=== PATIENT | female | born 1990 | race Caucasian/White ===

== ENCOUNTER → 2017-08-03 | Day surgery (SDC) | payer BC ==
[2017-08-02 09:54] VITALS: BP 136/72
[2017-08-02 10:15] LABS: BASOPHIL # 0.1 10^3/uL (0.0-0.1); BASOPHIL % 0.8 % (0.0-0.2); EOSINOPHIL # 0.2 10^3/uL (0.0-0.2); EOSINOPHIL % 2.2 % (0.0-5.0); HEMOGLOBIN 12.2 g/dL (12.0-15.0); LYMPHOCYTES % 25.9 % (24.0-44.0); MEAN CELL HGB 27.3 pg (26-34); MEAN CELL HGB CONCENTRATION 32.4 g/dL (33-37); MEAN CORP VOLUME 84.1 fL (78-100); MEAN PLATELET VOLUME 10.6 fL (7.8-11.0); MONOCYTES # 0.6 10^3/uL (0.3-0.8); NEUTROPHILS % 63.8 % (41.0-85.0); RED CELL DISTRIBUTION WIDTH 13.5 % (11.5-14.5); WHITE BLOOD CELL 7.8 10^3/uL (4.5-11.0)
[2017-08-02 10:47] LABS: CALCIUM 8.6 mg/dL (8.4-10.5); CARBON DIOXIDE 23.5 mmol/L (20.0-32)
--- NOTE | 2017-08-02 14:51 | PCM.EKG ---
[facility] Test Date: 2017-08-02 Test Time: 09:59:32 Pat Name: BANDAR HALL Department: Room: Gender: F Shuttle Repairer: COLIN : 1990 Requested By: MARYANN HALE Order Number: [id number] Reading MD: Measurements Intervals [place] Rate: 64 P: 27 NH: 188 QRS: 86 QRSD: 88 T: 35 QT: 412 QTc: 425 Interpretive Statements Normal sinus rhythm Normal ECG No previous ECG available for comparison Please click the below link to view image of tracing.
[~2017-08-03] VITALS: Ht 165.1 cm; Wt 92.5 kg
[2017-08-03] VITALS (13 sets, daily range): BP systolic 101–132; BP diastolic 55–83
[~2017-08-03] MED LIST: ATOR20TA PO; BENADRYL IV PRN; CETI10TA18 PO; CHOL500016 PO; CYAN10005 PO; DECADRON ONE; DILAUDID IV PRN; DILAUDID ONE; DIPRIVAN IV ONE; LACTATED RINGERS 1,000 ML IV SCH; LOVENOX SQ ONE; MEFOXIN 1 GM in NS 100ML 100 ML IV ONE; MEFOXIN ONE; METO-236 PO; MORPHINE SULFATE IV PRN; NEOSTIGMINE ONE; NORCO 5MG PO PRN; NS 100ML 100 ML IV ONE; OMEP20CA12 PO; PANT40TA5 PO; PHENERGAN IV PRN; SENSORCAINE-MPF 0.5% VIAL ONE; SODIUM CHLORIDE IR ONE; SODIUM CHLORIDE IRR BAG 1,000 ML ONE; SUBLIMAZE IV PRN; SUBLIMAZE ONE; TORADOL ONE; TURM1CAP PO; VERSED ONE; WATER ONE; ZEMURON IV ONE; ZOFRAN IV PRN; ZOFRAN ONE
--- NOTE | 2017-08-03 09:15 | OPH ---
DATE OF SURGERY: 08/03/2017 PREOPERATIVE DIAGNOSES: 1. Gallbladder polyp with associated biliary colic symptoms. 2. She has a history of dyspepsia. POSTOPERATIVE DIAGNOSES: 1. Chronic cholecystitis. 2. Gastritis. SURGEON: Ben Van DO OVERSEAMER: OR staff. ANESTHESIA: General by Vianca Cheney CRNA plus local used on the field. PROCEDURES PERFORMED: 1. Laparoscopic-assisted cholecystectomy. 2. Esophagogastroduodenoscopy with biopsy. SPECIMENS: 1. Gallbladder to path. 2. Gastric mucosa to path. ESTIMATED BLOOD LOSS: 11 mL. COUNTS: At the completion of the case, the counts were correct per OR staff. DESCRIPTION OF PROCEDURE: The patient is a 27-year-old female known from previous evaluation and consultation. Prior to procedure, informed consent was obtained. At the time of procedure, she was taken to the operative suite and placed in supine position. After time-out was completed, general anesthesia obtained, her abdomen was prepped and draped in normal fashion. Local was used to anesthetize the infraumbilical region. Incision created and 5 mm trocar was introduced into the abdomen with Endo camera visualization. Once in the abdomen, pneumoperitoneum was induced to the level of 14 mmHg. With camera visualization, 5 mm trocar was placed laterally in the right upper quadrant, 5 mm trocar was placed in the epigastrium towards the right upper quadrant, 5 mm trocar was placed in the midline towards right upper quadrant. The gallbladder was retracted and supposed, there was noted to be adhesions in the omentum and stomach to the body of the gallbladder taken down using blunt dissection and electrocautery. Once the infundibulum was identified, gentle dissection was made to isolate the cystic duct. Once cystic duct is clearly isolated, it was clipped twice proximally and once distally and divided sharply. Further dissection was made to isolate cystic artery. Once it was clearly identified, it was clipped twice proximally, once distally and divided with electrocautery. The gallbladder was removed from liver bed using electrocautery. Once completely removed, it was placed in EndoCatch bag, removed through the epigastric trocar and passed to backtable. Trocars reinserted, the gallbladder fossa was irrigated with sterile saline, inspected for bleeding. Any bleeding was identified was controlled with electrocautery. With meticulous hemostasis noted, irrigation and suctioned and closure pursued. With camera visualization, all 4 trocar sites were localized. Camera was placed in the superior trocar and three inferior trocars removed with camera visualization. There was noted to be no bleeding. After reduction of pneumoperitoneum, the superior trocar was removed with camera visualization through the trocar tract. All four skin incisions closed with 4-0 Monocryl. The patient was cleaned. Steri-Strips and bandage applied. Drapes removed. The patient remains anesthetized. The esophagogastroduodenoscope was advanced transorally with pneumoinsufflation distally in second portion of duodenum. Once the duodenum was adequately visualized, camera was slowly withdrawn to facilitate visualization of the duodenal bulb and the pylorus. Pylorus shows gastritis and biopsies are obtained. The retroflexed maneuver performed. The cardia and fundus were grossly normal. Camera reduced. Stomach was decompressed. Scope was slowly withdrawn. Distal, mid and proximal esophagus within normal limits. Vocal cords were not visualized as an endotracheal tube is in place. The camera was removed. Procedure was discontinued. The patient tolerated these procedures well. There were no acute complication noted. At this time, she has been delivered to the recovery room by the anesthesia service. Ben Van DO DR: YNES/ivon JOB# [id number]
== END | DRG 445 ==
LOC: SDC 04:19
PROVIDERS: ATTEND Surgery
DX: K81.1 Chronic cholecystitis (principal); K29.70 Gastritis, unspecified, without bleeding; G43.909 Migraine, unspecified, not intractable, without status migrainosus; K21.9 Gastro-esophageal reflux disease without esophagitis; I10 Essential (primary) hypertension; E78.4 Other hyperlipidemia; I47.1 Supraventricular tachycardia; E66.9 Obesity, unspecified; Z68.33 Body mass index [BMI] 33.0-33.9, adult; Z79.899 Other long term (current) drug therapy; Z98.890 Other specified postprocedural states
CPT/HCPCS: 36415; 43239; 47562; 80053; 84703; 85025; 85610; 85730; 93005; J1100; J1170; J1885; J2250; J2405; J3010; J3490 ×3; J7030 ×2; J7050 ×2; J0694; J2710

== ENCOUNTER → 2018-02-11 | Outpatient (CLI) | payer BC ==
[~2018-02-11] MED LIST changes: -BENADRYL IV PRN; -DECADRON ONE; -DILAUDID IV PRN; -DILAUDID ONE; -DIPRIVAN IV ONE; -LACTATED RINGERS 1,000 ML IV SCH; -LOVENOX SQ ONE; -MEFOXIN 1 GM in NS 100ML 100 ML IV ONE; -MEFOXIN ONE; -MORPHINE SULFATE IV PRN; -NEOSTIGMINE ONE; -NORCO 5MG PO PRN; -NS 100ML 100 ML IV ONE; -PHENERGAN IV PRN; -SENSORCAINE-MPF 0.5% VIAL ONE; -SODIUM CHLORIDE IR ONE; -SODIUM CHLORIDE IRR BAG 1,000 ML ONE; -SUBLIMAZE IV PRN; -SUBLIMAZE ONE; -TORADOL ONE; -VERSED ONE; -WATER ONE; -ZEMURON IV ONE; -ZOFRAN IV PRN; -ZOFRAN ONE
--- NOTE | 2018-02-11 09:35 | DIREP ---
PROCEDURE:XRAY KNEE 3 VIEWS-LT COMPARISON:None. INDICATIONS:LEFT KNEE PAIN FINDINGS: BONES:Normal. JOINTS:Normal. SOFT TISSUES:Normal. OTHER:No additional findings. CONCLUSION: 1. Radiographs of the left knee appear normal. Dictated by: Travis Oconnor M.D. on 02/11/2018 at 09:46 AM
== END | disposition home or self-care (01) ==
LOC: RAD 09:04
PROVIDERS: ATTEND Nurse Practitioner Family
DX: M25.562 Pain in left knee (principal); I10 Essential (primary) hypertension; K21.9 Gastro-esophageal reflux disease without esophagitis; E78.4 Other hyperlipidemia
CPT/HCPCS: 73562-LT

== ENCOUNTER → 2018-10-24 | Outpatient (CLI) | payer BC ==
--- NOTE | 2018-10-24 16:45 | DIREP ---
PROCEDURE:XRAY SPINE THORACIC 3 VWS COMPARISON:None. INDICATIONS:THORACALGIA TECHNIQUE:AP & lateral views of the thoracic spine and a swimmer's view of the cervicothoracic junction are provided. FINDINGS: ALIGNMENT:Normal. VERTEBRAE:Normal. DISK SPACES:Normal. OTHER:Normal. CONCLUSION:Negative thoracic spine radiograph. Dictated by: Neeraj Cisneros M.D. on 10/24/2018 at 04:39 PM
== END | disposition home or self-care (01) ==
LOC: RAD 14:26
PROVIDERS: ATTEND Nurse Practitioner
DX: M54.6 Pain in thoracic spine (principal)
CPT/HCPCS: 72072

== ENCOUNTER 2020-07-07 06:47 | Emergency (ER) | payer BC ==
[~2020-07-07] VITALS: Ht 165.1 cm; Wt 95.3 kg
[~2020-07-07 06:47] MED LIST changes: +CYAN-26 PO; -CYAN10005 PO; -OMEP20CA12 PO; +OMEP20CA19 PO; -PANT40TA5 PO; +PANT40TA6 PO
[2020-07-07 06:49] VITALS: BP 127/82
--- NOTE | 2020-07-07 07:06 | ER.PDOC ---
General Chief Complaint: Palpitations Stated Complaint: RAPID HEART RATE,SOB Time seen by MD: 07:06 Source: patient Exam Limitations: no limitations History of Present Illness Initial Comments Patient presents for evaluation of palpitations and Shortness of breath. She reports that she has been on Metoprolol 25mg XR for several years. Over the past week she has had runny nose, rapid heart rate and shortness of breath where she feels that she cant catch her breath. She has not missed any doses.No increase in caffeine, no perceived anxiety. SHe did have a fever of 100 this morning. Denies cough, headache, body aches, urinary complaints, vomiting, diarrhea or change in taste or smell. She does endorse nausea. Her fit bit has been between 109-117 so she came in for evaluation. No known sick contacts. No pain or swelling in extremities. No family hx of DVT/PE Allergies: Coded Allergies: Penicillins (Verified Allergy, Unknown, RASH, 07/07/20) Home Meds Reported Medications Omeprazole (OMEPRAZOLE) 20 Mg Capsule.dr, 1 CAP PO Q48H, #30 CAP 5 Refills ALTERNATE WITH PANTOPROZOLE 08/02/17 Cetirizine Hcl (CETIRIZINE HCL) 10 Mg Tablet, 1 TAB PO DAILY, #30 TAB 5 Refills 08/02/17 Turmeric/Turmeric Ext/Pepr Ext (Turmeric Complex 500 mg Cap) 500 Mg-3 Mg Capsule, 1 CAP PO DAILY24 08/02/17 Cholecalciferol (Vitamin D3) (VITAMIN D3) 5,000 Unit Tablet, 1 TAB PO DAILY, #30 TAB 08/02/17 Cyanocobalamin (Vitamin B-12) (VITAMIN B-12) 1,000 Mcg Tablet, 1 TAB PO DAILY, #30 TAB 2 Refills 08/02/17 Atorvastatin 20MG (LIPITOR 20MG) 20 Mg Tablet, 1 TAB PO Q48H, #90 TAB 1 Refill 08/02/17 Pantoprazole Sodium (PANTOPRAZOLE SODIUM) 40 Mg Tablet.dr, 1 TAB PO Q48H, #30 TAB 3 Refills 08/02/17 Metoprolol Succinate (METOPROLOL SUCCINATE) 25 Mg Tab.er.24h, 1 TAB PO DAILY, #30 TAB 5 Refills 08/02/17 Past Medical History Medical History: other Surgical History: cholecystectomy Social History Alcohol Use: rarely Drug Use: none Reviewed Nursing Reviewed: Vital Signs, Abn. Noted, Nursing Assessment Constitutional: see HPI, fever EENTM: see HPI, nose congestion Respiratory: see HPI Cardiovascular: see HPI Gastrointestinal: see HPI, nausea Genitourinary: no symptoms reported Musculoskeletal: no symptoms reported Psychiatric/Neurological: no symptoms reported All Other Systems: Reviewed and Negative Physical Exam General Appearance: No Apparent Distress, WD/WN HEENT: PERRL/EOMI, Normal ENT Inspection, TMs Normal Neck: Non-Tender, Full Range of Motion, Supple Respiratory: chest non-tender, lungs clear, normal breath sounds, no respiratory distress, no accessory muscle use Cardiovascular: Normal Peripheral Pulses, No JVD, No Murmur, Tachycardia Gastrointestinal: Normal Bowel Sounds, No Organomegaly, Non Tender, Soft Extremities: Normal Range of Motion, Non-Tender, Normal Inspection Neurologic/Psychiatric: No Motor/Sensory Deficits, Alert Skin: Normal Color, Warm/Dry Results/Orders Results/Orders Vital Signs Date Time Temp Pulse Resp B/P (MAP) Pulse Ox O2 Delivery O2 Flow Rate FiO2 07/07/20 06:49 98.6 115 18 07/07/20 06:49 98.6 98 16 98 Progress Progress Patient is covid positive. Otherwise labs unremarkable including dimer, TSH, Hb,and troponin. CXR clear. She is in no respiratory distress and satting 97% on RA. Patient will be placed on z-eboni and prednisone. She is instructed on OTC vit D, Zince and ASA. She will use tylenol/ motrin for fever control and increase oral hydration. She will obtain a home pulse oximeter. If she has any new or worsening Sx she will return to the ER otherwise she will follow up with PCP. HOme quarantine was also discussed EKG/XRAY/CT/US EKG Comments: sinus tach with rate 114 XRAY: chest ER DEPART Departure Time of Disposition: 08:16 Disposition: 01 HOME, SELF-CARE Impression: Primary Impression: COVID-19 Additional Impression: Palpitations Condition: Stable Referrals: SUZIE BEAN DIRECTOR OF LITIGATION (PCP) PRIMARY CARE PROVIDER Comments Z-eboni and prednisone Duration or Time Spent with Pa: 20 Return to Work/School Can a patient return to work?: No Problem Qualifiers SAMIA MORA MD Jul 07, 2020 07:06
[2020-07-07] MEDS ORDERED: NS 1000ML 1,000 ML STA (07:08)
--- NOTE | 2020-07-07 07:09 | PCM.EKG ---
[facility] Test Date: 2020-07-07 Test Time: 06:53:44 Pat Name: BANDAR HALL Department: Room: Gender: F Leak Patcher: SP : 1990 Requested By: SAMIA MORA Order Number: [id number] Reading MD: Samia Mora Measurements Intervals [place] Rate: 114 P: 76 NV: 170 QRS: 111 QRSD: 91 T: -20 QT: 326 QTc: 449 Interpretive Statements Sinus tachycardia Right axis deviation Borderline T abnormalities, diffuse leads Compared to ECG 08/02/2017 09:59:32 Right-axis deviation now present T-wave abnormality now present Sinus rhythm no longer present Electronically Signed On 07-09-2020 8:50:08 SOIL BIOLOGY TEACHER by Samia Mora Please click the below link to view image of tracing.
[2020-07-07 07:19] LABS: BASOPHIL % 0.2 % (0.0-0.2); EOSINOPHIL % 0.2 % (0.0-5.0); LYMPHOCYTES # 0.55 10^3/uL1 (1.0-4.8); LYMPHOCYTES % 13.2 % (24.0-44.0); MEAN CORP HGB 28.4 pg (26-34); MONOCYTES # 0.4 10^3/uL (0.3-0.8); MONOCYTES % 8.6 % (5.0-12.0); NEUTROPHIL # 3.3 10^3/uL (1.8-7.7); NEUTROPHILS % 77.8 % (41.0-85.0); PLATELET COUNT 206 10^3/uL (150-400); RED CELL DISTRIBUTION WIDTH 12.9 % (11.5-14.5)
[2020-07-07] MEDS ORDERED: NS 1000ML 1,000 ML ONE (07:19)
--- NOTE | 2020-07-07 07:25 | DIREP ---
PROCEDURE:CHEST 1 VIEW COMPARISON:None. INDICATIONS:SOB, palpitations FINDINGS: LUNGS/PLEURA:No significant pulmonary parenchymal abnormalities. No effusions. VASCULATURE:Normal. Unremarkable pulmonary vasculature. CARDIAC:Normal. No cardiac silhouette abnormality or cardiomegaly. MEDIASTINUM:Normal. No visible mass or adenopathy. BONES:Normal. No fracture or visible bony lesion. OTHER:Negative. CONCLUSION:Normal examination. Dictated by: Glen Whalen M.D. on 07/07/2020 at 07:23 AM
[2020-07-07 07:46] VITALS: BP 133/87
[2020-07-07 07:50] LABS: ALANINE AMINOTRANSFERASE(ML) 19 U/L (12-78); ALKALINE PHOSPHATASE 66 U/L (50-136); ASPARTATE AMINO TRANSFERASE 12 U/L (0-35); CALCIUM 8.3 mg/dL (8.4-10.5); CARBON DIOXIDE 22.3 mmol/L (20.0-32); GLUCOSE 106 mg/dL (70-110)
--- NOTE | 2020-07-07 08:20 | NUR ---
IV IV DISCONTINUED FROM RIGHT AC, CATHETER INTACT.
== END 2020-07-07 08:20 | disposition home or self-care (01) ==
LOC: ER 06:47
DX: U07.1 COVID-19 (principal); R00.2 Palpitations; R06.02 Shortness of breath; Z79.899 Other long term (current) drug therapy; Z90.49 Acquired absence of other specified parts of digestive tract; Z88.0 Allergy status to penicillin
CPT/HCPCS: 36415; 71045; 80053; 83880; 84443; 84484; 84703; 85025; 85379; 85610; 85730; 87426; 87804 ×2; 93005; 96360; 99285; J7030

== ENCOUNTER → 2020-10-19 | Outpatient (CLI) | payer BC ==
--- NOTE | 2020-10-19 16:51 | PCM.ECHO ---
APPROVED REPORT EXAM: Comprehensive 2D, Doppler, and color-flow Echocardiogram. Patient Location: OUT-PATIENT Indications Palpitations Tachycardia 2D Dimensions LVOT Diameter 2.47 (1.8-2.4cm) LVEF(%) 59.56 (>50%) M-Mode Dimensions RVDd 2.10 (2.1-3.2cm) Left Atrium(MM) 4.75 (2.5-4.0cm) IVSd 0.85 (0.7-1.1cm) Aortic Root 2.50 (2.2-3.7cm) LVDd 5.15 (4.0-5.6cm) Aortic Cusp Exc 1.95 (1.5-2.0cm) PWd 0.70 (0.7-1.1cm) MV EPSS 0.70 (<0.5cm) IVSs 1.45 cm FS (%) 40.60 % LVDs 3.05 (2.0-3.8cm) ESV(Teich) 37.12 ml PWs 1.25 cm LVEF(%) 71.00 (>50%) Volumes Biplane 2D LV Volumes Biplane 2D LA Volumes LVEDv A4C 113.02 mL LA ESV Index LVESv A4C 45.71 mL Aortic Valve AoV Peak Brian. 1.15 m/s AoV VTI 23.95 cm AO Peak GR. 5.35 mmHg AO Mean GR. 3.25 mmHg LVOT VTI 20.12 cm LVOT Peak Brian. 0.84 m/s SYD(VTI)/BSA 4.03 cm2/m2 SYD (VTI) 4.03 cm2 Mitral Valve MV E Velocity 1.20m/s MR Peak Gr. 8.70mmHg MV A Velocity 0.85m/s TDI Lateral E' P. V 0.13m/s Medial E' P. V 0.10m/s Pulmonary Valve PV Peak Velocity 0.75m/s PV Peak Grad. 2.30mmHg RVOT VTI 17.20cm Tricuspid Valve TR P. Velocity 2.20m/s RAP ESTIMATE 10.00mmHg TR Peak Gr. 19.91mmHg RVSP 29.91mmHg LEFT VENTRICLE The left ventricle is normal size. The left ventricular systolic function is normal. The left ventricular ejection fraction is within the normal range. There is normal left ventricular wall thickness. There is normal LV segmental wall motion. There is no ventricular septal defect visualized. No left ventricle thrombus noted on this study. LVEF is 60-65%. RIGHT VENTRICLE The right ventricle is normal size. The right ventricular systolic function is normal. There is normal right ventricular wall thickness. ATRIA The left atrium size is normal. The right atrium size is normal. The interatrial septum is intact with no evidence for an atrial septal defect. AORTIC VALVE The aortic valve is normal in structure. There is no aortic valvular stenosis. No aortic regurgitation is present. MITRAL VALVE The mitral valve is normal in structure. There is no mitral valve stenosis. Mild mitral regurgitation. There is no evidence of mitral valve vegetations. TRICUSPID VALVE The tricuspid valve is normal in structure. There is no tricuspid valve stenosis. Mild to moderate tricuspid regurgitation. There is no tricuspid valve vegetations. PULMONIC VALVE Pulmonic valve is not well visualized. There is no pulmonic valvular stenosis. There is no pulmonic valvular regurgitation. GREAT VESSELS The aortic root is normal in size. Pulmonary artery is not well visualized. Aortic arch is not well visualized. The IVC is normal in size and collapses >50% with inspiration. PERICARDIUM There is no pericardial effusion. There is no pleural effusion. Other Information Study Quality: Fair <Conclusion> The left ventricular systolic function is normal. LVEF is 60-65%. Mild mitral regurgitation. Mild to moderate tricuspid regurgitation. Electronically signed by : IFEANYI STEINER. 10/19/2020 16:51:21
== END | disposition home or self-care (01) ==
LOC: RT 15:08
PROVIDERS: ATTEND Internal Medicine Interventional Cardiology
DX: I08.1 Rheumatic disorders of both mitral and tricuspid valves (principal)
CPT/HCPCS: 93306

== ENCOUNTER → 2021-06-23 | Outpatient (CLI) | payer BC | END | disposition home or self-care (01) | LOC: NPLAB 16:40 | PROVIDERS: ATTEND Nurse Practitioner Family | DX: R50.9 Fever, unspecified (principal); J02.0 Streptococcal pharyngitis; Z20.822 Contact with and (suspected) exposure to COVID-19 | CPT/HCPCS: 87426 ==